=== PATIENT | female | born 1995 | race Caucasian/White ===

== ENCOUNTER 2019-11-21 08:10 | Emergency (ER) | payer OTHER ==
[~2019-11-21] VITALS: Ht 149.9 cm; Wt 81.6 kg
--- NOTE | 2019-11-21 08:10 | NUR ---
24 YEAR OLD FEMALE BIBA COMPLAINS OF VAGINAL BLEEDING X 20MINS AGO. PER EMS PT HAD ABOUT 500 CC OF BLOOD LOSS. PT STATES THAT HER VAGINAL BLEEDING STARTED SUDDENLY WITHOUT TRAUMA, HAS A HISTORY OF PLACENTA PREVIA. PT STATES 29 WEEKS , 4TH , 3 LIVE BIRTHS. PT AOX4, BREATHING EVEN AND UNLABORED, SKIN WARM AND DRY. BED IN LOWEST POSITION, LOCKED, BED RAIL UPX1. PT DENIES ANY PAIN. PT PLACED ON MONITOR, HR 110, RR 32, SPO2 99%, BP 118/72. ERMD MADE AWARE PMH - PLACENTA PREVIA ALLERGIES - PCN
--- NOTE | 2019-11-21 08:10 | NUR ---
Patient BIBA ALS accompanied by Karin JOSE, transferred to bed 12. RN evaluating patient at bedside.
--- NOTE | 2019-11-21 08:10 | NUR ---
BLEEDING CONTROLLED, PT STATES THAT SHE IS FEELING FINE WITHOUT ANY DIZZINESS.
[2019-11-21 08:11] VITALS: BP 112/72
--- NOTE | 2019-11-21 08:11 | NUR ---
Dr. Lizarraga is evaluating the patient at bedside.
--- NOTE | 2019-11-21 08:29 | NUR ---
ULTRASOUND ARRIVED AT BEDSIDE
[2019-11-21 08:49] LABS: BASOPHILS % (AUTO) 0.3 % (0.0-2.0); EOSINOPHILS # (AUTO) 0.1 K/uL (0-0.4); EOSINOPHILS % (AUTO) 1.6 % (0.0-4.0); HEMATOCRIT 28.2 % (36-48); HEMOGLOBIN 9.3 g/dL (12.0-16.0); LYMPHOCYTES # (AUTO) 2.2 K/uL (2.5-16.5); LYMPHOCYTES % (AUTO) 26.1 % (20.5-51.1); MEAN CORPUSCULAR HEMOGLOBIN 27 pg (27-31); MEAN CORPUSCULAR HGB CONC 33 g/dL (33-37); MEAN CORPUSCULAR VOLUME 80.6 fL (80-94); MONOCYTES # (AUTO) 0.7 K/uL (0.8-1.0); NEUTROPHILS # (AUTO) 5.5 K/uL (1.8-7.7); PLATELET COUNT (AUTO) 216 K/uL (140-450); RED CELL DISTRIBUTION WIDTH 14.7 % (11.6-13.7); WHITE BLOOD COUNT (AUTO) 8.5 K/uL (4.8-10.8)
[2019-11-21 09:03] LABS: PROTHROMBIN TIME 9.4 secs (10.8-13.4)
[2019-11-21 09:05] LABS: ALBUMIN 2.2 g/dL (3.4-5.0); ANION GAP 14.4 (8-16); CARBON DIOXIDE 19.2 mmol/L (21-32); CREATININE 0.4 mg/dL (0.6-1.3); POTASSIUM 3.6 mmol/L (3.5-5.1); TOTAL BILIRUBIN 0.2 mg/dL (0.0-1.0)
--- NOTE | 2019-11-21 09:23 | NUR ---
Patient to be transferred to [facility]. Is being transferred due to higher level of care. Receiving facility has accepting physician and available space. ER physician has signed transfer form. Patient or responsible republican has agreed to transfer and signed form. Patient belongings inventoried and will be sent with patient. Copy of nursing notes, lab reports, EKG, Physicians Orders and X-rays to be sent with patient. Report called to Tracy at receiving facility. States they will arrange transport
--- NOTE | 2019-11-21 09:23 | NUR ---
TALKED TO HENRY FROM [facility], REPORT GIVEN BY PHONE. STATES THEY WILL ARRANGE TRANSPORT
--- NOTE | 2019-11-21 10:00 | NUR ---
PT ALERT AND AWAKE, BREATHING EVEN AND UNLABORED. PT STATES SHE IS DOING FINE, NO DISTRESS NOTED. WILL CONTINUE TO MONITOR.
--- NOTE | 2019-11-21 10:00 | NUR ---
Note hetal in EDM - 11/21/19 at 1016 by [email or web address] PT ALERT AND AWAKE, BREATHING EVEN AND UNLABORED. PT STATES SHE IS DOING FINE, NO DISTRESS NOTED. WILL CONTINUE TO MONITOR.
--- NOTE | 2019-11-21 10:26 | NUR ---
[facility]'s Transport Team is at the bedside.
--- NOTE | 2019-11-21 10:31 | NUR ---
[facility] TRANSPORT TEAM AT BEDSIDE
[2019-11-21 10:34] VITALS: BP 112/67
== END 2019-11-21 10:31 | disposition short-term general hospital (02) ==
LOC: MED 08:10
DX: O26.852 Spotting complicating pregnancy, second trimester (principal); O99.012 Anemia complicating pregnancy, second trimester; Z3A.27 27 weeks gestation of pregnancy
CPT/HCPCS: 36415; 76805; 80053; 85025; 85610; 85730; 86870; 86886; 86900; 86901; 99291; Q0092